=== PATIENT | female | born 2000 | race African-American/Black ===

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

== ENCOUNTER 2019-08-19 19:00 | Emergency (ER) | payer OTHER, SELFPAY ==
[2019-08-19 20:24] LABS: Bilirubin Negative (Negative); Blood, Urine Large (Negative); Clarity Clear (Clear); Glucose, Urine (Dipstick) Negative (Negative); Leukocyte Trace (Negative); Nitrite Negative (Negative); Protein, Urine (Dipstick) Negative (Neg-Trace); Urobilinogen 0.2 mg/dL (Less than 2)
[2019-08-19 20:38] LABS: RBC/HPF 0-3 HPF (0-3)
== END 2019-08-19 20:51 | disposition home or self-care (01) ==
LOC: NAV ERS 19:00
DX: S39.012A Strain of muscle, fascia and tendon of lower back, initial encounter (principal); J45.909 Unspecified asthma, uncomplicated; X50.1XXA Overexertion from prolonged static or awkward postures, initial encounter; Y99.0 Civilian activity done for income or pay
CPT/HCPCS: 81003; 81015; 87086; 99283

== ENCOUNTER 2024-04-08 22:49 | Emergency (ER) | payer SELFPAY ==
[2024-04-08] MEDS ORDERED: Ibuprofen 200 MG TAB ONE (23:06)
[2024-04-08] MEDS ORDERED: Ondansetron ODT 4 MG TAB ONE (23:06)
== END 2024-04-09 00:27 | disposition home or self-care (01) ==
LOC: NAV ERS 22:49
DX: R51.9 Headache, unspecified (principal); R11.2 Nausea with vomiting, unspecified; R42 Dizziness and giddiness
CPT/HCPCS: 99283; Q0162